=== PATIENT | female | born 1980 | race Caucasian/White ===

== ENCOUNTER 2017-02-17 11:13 | Inpatient (IN) | payer BC ==
[2017-02-17] MEDS ORDERED: METHYLERGONOVINE 0.2 MG/ML 1 ML AMP IM PRN (12:10)
[2017-02-17] MEDS ORDERED: CARBOPROST TROMETHAMINE 250 MCG/ML 1 ML AMP IM PRN (12:10)
[2017-02-17] MEDS ORDERED: LIDOCAINE 1% (PF) 10 MG/ML (30 ML SDV) SQ PRN (12:10)
[2017-02-17] MEDS ORDERED: OXYTOCIN 10 UNIT/ML 1 ML VIAL IM PRN (12:10)
[2017-02-17] MEDS ORDERED: TERBUTALINE 1 MG/ML VIAL SQ PRN (12:10)
[2017-02-17] MEDS ORDERED: OXYTOCIN 20 UNITS/1000 ML NS 1,000 ML IV SCH ×2 (12:15→14:30)
[2017-02-17] MEDS ORDERED: LACTATED RINGERS 1,000 ML IV SCH (12:15)
[2017-02-17 12:41] VITALS: BMI 27.1
[2017-02-17] MEDS ORDERED: BUTORPHANOL 1 MG/ML 1 ML VIAL IV PRN (12:41)
--- NOTE | 2017-02-17 12:46 | P.HPOB ---
History of Present Illness H&P Date: 02/17/17 Chief Complaint: 40-4/7 weeks, active labor The patient is a 36-year-old 4 para 1021 admitted at 40-4/7 weeks as established by last menstrual period and confirmed by 9 week ultrasound. She is admitted in early active labor with all signs reassuring. Her has been entirely uncomplicated. She does fall into the category of advanced maternal age and declined chromosomal screening. She is additionally Rh- and received RhoGAM at 28 weeks. During the , her initial ultrasound demonstrated a possible ventricular septal defect which was not noted on level II scan with maternal medicine. Group B strep status is negative. Obstetrical history: 4 para 1021 with 1 term vaginal delivery without complications. She had 2 early miscarriages not requiring D&C. Current statistics are listed in history of present illness. EDC of 2016 was established by last menstrual period and confirmed by 9 week ultrasound. Laboratory workup demonstrates a blood type of A- with a negative antibody screen. Rubella status is immune. Remainder of her laboratory workup was within normal limits. One hour Glucola was normal and group B strep status is negative. Gynecologic history: Unremarkable with no history of any infections to include STDs. Review of Systems Review of systems is confined to history of present illness. Past Medical History Past Medical History: No Reported History History of Any Multi-Drug Resistant Organisms: None Reported Past Surgical History: No Surgical Hx Reported Past Anesthesia/Blood Transfusion Reactions: No Reported Reaction Past Psychological History: No Psychological Hx Reported Smoking Status: Never smoker Past Alcohol Use History: None Reported Past Drug Use History: None Reported - Past Family History Father Family Medical History: No Reported History Medications and Allergies Home Medications Medication Instructions Recorded Confirmed Type Pnv No.95/Ferrous Fum/Folic AC 1 each PO 02/17/17 History [ Multivitamin Tablet] Allergies Allergy/AdvReac Type Severity Reaction Status Date / Time No Known Allergies Allergy Verified 02/17/17 11:26 Exam - Vital Signs Vital signs: Vital Signs Temp Pulse Resp BP 02/17/17 12:10 97.6 F 86 18 116/79 02/17/17 11:29 97.6 F 86 18 116/79 Intake and Output 02/16/17 02/17/17 02/17/17 22:59 06:59 14:59 Other: Weight 69.4 kg Patient Weight 02/18/17 06:59 Weight 69.4 kg In general, this is a well-developed, well-nourished white female in no acute distress. Her heart has a regular rhythm and rate without murmur. Her lungs are clear to auscultation bilaterally in all springer. Her abdomen is gravid, nondistended, has normal active bowel sounds, is soft, nontender, and without any palpable masses aside from uterine fundus. Her extremities are without any cyanosis, clubbing, or significant edema and are nontender to palpation bilaterally. Digital cervical examination demonstrates her cervix to be approximate 5 cm dilated, 80% effaced, the vertex in presentation at -2 station. Artificial rupture of membranes is carried out demonstrating clear fluid. Assessment and Plan (1) Active labor at term Current Visit: Yes Status: Acute Code(s): [id number] - SNOMED Code(s): 20038386 Plan: The patient is admitted for active management of labor. She will have close maternal and surveillance and expectant management will be practiced. She is a good candidate for either IV or epidural analgesia, whichever she may choose.
[2017-02-17 13:12] LABS: Basophils % (A) 0 %; CH 26.2; CHCM 31.6; Eosinophils % (A) 0 %; HCT 31.5 % (34.0-46.0); HDW 2.72; HGB 10.3 gm/dL (11.4-16.0); Hypochromasia Slight; Luc # (Auto) 0.16; Luc % (Auto) 1; Lymphocytes # (A) 1.8 k/uL (1.0-4.8); Lymphocytes % (A) 12 %; MCH 27.2 pg (25.0-35.0); MCHC 32.7 g/dL (31.0-37.0); MCV 83.4 fL (80.0-100.0); Mean Platelet Volume 9.7; Monocytes # (A) 0.8 k/uL (0-1.0); Monocytes % (A) 5 %; Neutrophils # (A) 12.5 k/uL (1.3-7.7); Neutrophils % (A) 81 %; RBC 3.78 m/uL (3.80-5.40); WBC 15.3 k/uL (3.8-10.6); WBC (Perox) 15.97
[2017-02-17] MEDS ORDERED: BENZOCAINE/MENTHOL SPRAY 1 GM/SPRAY AEROSOL TOPICAL PRN (14:22)
[2017-02-17] MEDS ORDERED: LANOLIN CREAM 5 GM TUBE TOPICAL PRN (14:22)
[2017-02-17] MEDS ORDERED: SIMETHICONE 80 MG CHEWABLE PO PRN (14:22)
[2017-02-17] MEDS ORDERED: WITCH HAZEL 1 EACH MED..PAD TOPICAL PRN (14:22)
[2017-02-17] MEDS ORDERED: diphenhydrAMINE 25 MG CAP PO PRN (14:22)
[2017-02-17] MEDS ORDERED: diphenhydrAMINE 50 MG/ML 1 ML VIAL IVP PRN ×2 (14:22)
[2017-02-17] MEDS ORDERED: diphenhydrAMINE 50 MG CAP PO PRN (14:22)
[2017-02-17] MEDS ORDERED: ZOLPIDEM 5 MG TAB PO PRN (14:22)
[2017-02-17] MEDS ORDERED: Acetaminophen-Codeine 300-30mg TAB PO PRN ×2 (14:22)
[2017-02-17] MEDS ORDERED: ACETAMINOPHEN TAB 325 MG TAB PO PRN (14:22)
[2017-02-17] MEDS ORDERED: HYDROCORTISONE 2.5% RECTAL CREAM 30 GM TUBE RECTAL PRN (14:22)
[2017-02-17] MEDS ORDERED: INFLUENZA VACCINE (6 MOS+) 60 MCG/0.5 ML SYRINGE IM ONE (14:24)
[2017-02-17] MEDS ORDERED: DIPH,PERTUS(ACELL)TETVAC-LF 0.5 ML VIAL IM ONE (14:24)
--- NOTE | 2017-02-17 14:28 | P.PROBDLV ---
Vaginal Delivery Note - . Vaginal Delivery Note: The patient is a 36-year-old 4 para 1021 admitted at 40-4/7 weeks by good dating parameters. She is admitted in early active labor with all signs reassuring. Her has been uncomplicated and group B strep status is negative. She is Rh- and received RhoGAM at 28 weeks. She additionally falls into the category of advanced maternal age and declined testing. On labor and delivery, she had artificial rupture of membranes carried out demonstrating clear fluid. She made quick progress through the active phase of labor to complete and +1 station. She pushed over the course of approximately 3 contractions to a normal spontaneous vaginal delivery of a viable 8 lbs. 3 oz. baby boy with Apgars of 9 at 1 minute and 9 at 5 minutes delivered in the right occiput anterior position. cord blood was collected for evaluation for the necessity of RhoGAM prior to discharge. The placenta was delivered spontaneously, intact, and grossly normal with a grossly normal three-vessel cord inserted approximately 4 cm from the margin of the placental disc. There was a very small second-degree midline laceration that appeared to be over the site of a previous laceration which was repaired over a 1% lidocaine block with 3-0 chromic catgut without difficulty. Estimated blood loss for the case was approximately 250 mL. There were no complications. All sponge, instrument, and needle counts were correct. Both mother and are resting comfortably in recovery.
[2017-02-17] MEDS: IBUPROFEN 600 MG TAB PO PRN ×2 (15:13→22:53)
[2017-02-17] MEDS: SENNOSIDES-DOCUSATE SODIUM 1 EACH TAB PO SCH (19:22)
[2017-02-17 20:37] VITALS: RESP 16
[2017-02-18] MEDS: IBUPROFEN 600 MG TAB PO PRN ×2 (06:01→15:21)
[2017-02-18] MEDS: SENNOSIDES-DOCUSATE SODIUM 1 EACH TAB PO SCH (08:38)
--- NOTE | 2017-02-18 11:23 | P.DS ---
Providers Date of admission: 02/17/17 11:50 Expected date of discharge: 02/18/17 Attending physician: Thomas Wakefield Primary care physician: Stated None - Discharge Diagnosis(es) (1) Active labor at term Current Visit: Yes Status: Acute (2) Normal vaginal delivery Current Visit: Yes Status: Acute Hospital Course: The patient is a 36-year-old 4 para 1021 admitted at 40-4/7 weeks by good dating parameters. She is admitted in active labor with all signs reassuring. Her has been entirely uncomplicated though she falls into the category of advanced maternal age and declined chromosomal screening. She is additionally Rh- and received RhoGAM at 28 weeks. On labor and delivery, she underwent artificial rupture of membranes and made fairly rapid progress through the active phase of labor to complete and then pushed to a normal spontaneous vaginal delivery of a viable 8 lbs. 3 oz. baby boy with Apgars of 9 at 1 minute and 9 at 5 minutes. Her course was unremarkable vital signs remaining stable and her temperature was afebrile throughout. She was deemed stable for discharge by day #1 was discharged home to follow-up in the office in 6 weeks' time routinely. Discharge instructions included calling for any significantly increased bleeding or foul-smelling lochia, significantly increased fever or abdominal pain, perineal complaints, breast complaints, or anything else that concerned her. She was additionally instructed to have nothing in the vagina for at least 6 weeks time to include intercourse. She understood her instructions and agrees to follow up as noted above. Discharge medications included continued vitamins as she has opted to breast-feed. She additionally was to use [id number] analgesic pain medications as needed. Maternal blood type is A - and cord blood was sent for evaluation for the necessity of RhoGAM prior to discharge. Rubella status is immune. Procedures: #1. Artificial rupture of membranes #2. Normal spontaneous vaginal delivery # 3. Repair of perineal laceration Patient Condition at Discharge: Good Plan - Discharge Summary Discharge Rx Participant: Yes New Discharge Prescriptions: No Action Pnv No.95/Ferrous Fum/Folic AC [ Multivitamin Tablet] 1 tab PO DAILY Discharge Medication List Pnv No.95/Ferrous Fum/Folic AC [ Multivitamin Tablet] 1 tab PO DAILY [History] Follow up Appointment(s)/Referral(s): Thomas Wakefield MD [STAFF PHYSICIAN] - 6 Weeks Discharge Disposition: HOME SELF-CARE
[2017-02-18 11:41] VITALS: BP 115/70; PULSE 72; TEMP 98.4
--- NOTE | 2017-02-19 13:40 | P.MSEPDOC ---
Presenting Problems - Arrival Data Date of Arrival on Unit: 02/17/17 Time of Arrival on Unit: 11:13 Mode of Transport: Ambulatory - Complaint OB-Reason for Admission/Chief Complaint: Other Comment: pt arrived c/o contractions Medical History - Information : 4 Para: 1 Term: 1 : 0 Abortions: Spontaneous or Elective: 2 Number of Living Children: 1 - Gestational Age Gestational Age by ORIN (wks/days): 40 Weeks and 4 Days Review of Systems - Review of Systems Constitutional: No problems Breast: No problems ENT: No problems Cardiovascular: No problems Respiratory: No problems Gastrointestinal: No problems Genitourinary: No problems Musculoskeletal: No problems Neurological: No problems Skin: No problems Vital Signs - Temperature Temperature: 98.4 F Temperature Source: Oral - Pulse Right Brachial Pulse Rate: 72 Pulse Assessment Method: Automatic Cuff - Respirations Respiratory Rate: 16 Oxygen Delivery Method: Room Air - Blood Pressure Right Arm Blood Pressure: 115/70 Blood Pressure Mean: 85 Blood Pressure Source: Automatic Cuff Medical Screen Scoring (Pre) - Cervical Exam Dilation: 1-3 cm = 1 Effacement: More than 50% = 2 Membranes: Intact - Uterine Contractions Frequency: > or = 36 weeks =2 Duration: > 40 seconds = 2 Intensity: N/A - Maternal Vital Signs Maternal Temperature: N/A Maternal Blood Pressure: N/A Signs of Preeclampsia: N/A Maternal Respirations: N/A - Pain Assessment Pain Location and Character: Abdomen Pain Scale Used: Numeric (1 - 10) Pain Intensity: 3 Pain Management Goal: 1 Pain Description: Cramping Pain Radiation Location: n/a Pain Frequency: Occasional Pain Duration: 4 Pain Duration Units: Minutes Pain Behavior: Vocalization Pain Aggravating Factors: Contractions Non-Pharmacological Interventions: Relaxation Technique - Maternal Trauma Maternal Trauma: N/A - Assessment Baseline FHR: 150 Heart Rate - NICHD Category: Category I (Normal) = 0 NST: Reactive Position: N/A Station: N/A - Total Score Total Score (Pre): 7 - Level of Risk Level of Risk: Medium (6-9) Physician Notification (Pre) - Physician Notified Physician Notified Date: 02/17/17 Physician Notified Time: 11:40 Spoke With: dr blount New Order Received: Yes - Notification Comment Comment: admit pt for labor Disposition - Disposition OB Disposition: Admit, LDRP Suite Transferred to:: st 10 Discharge Date: 02/17/17 Discharge Time: 11:57 I agree with the RN Medical Screening Exam: Yes Risk & Benefit of care provided described in d/c instruction: Yes Diagnosis: ENCOUNTER FOR FULL-TERM UNCOMPLICATED DELIVERY
== END 2017-02-18 15:59 | disposition home or self-care (01) | DRG 775 ==
LOC: FBPOP 11:13 → 4FBP 11:50
PROVIDERS: ADMIT Obstetrics & Gynecology; ATTEND Obstetrics & Gynecology
PROC: 10E0XZZ Delivery of Products of Conception, External Approach (ICD-10-PCS; principal; 2017-02-17)
PROC: 0KQM0ZZ Repair Perineum Muscle, Open Approach (ICD-10-PCS; 2017-02-17)
PROC: 3E0234Z Introduction of Serum, Toxoid and Vaccine into Muscle, Percutaneous Approach (ICD-10-PCS; 2017-02-17)
DX: O70.1 Second degree perineal laceration during delivery (principal); Z37.0 Single live birth; Z23 Encounter for immunization; Z3A.40 40 weeks gestation of pregnancy; Z79.899 Other long term (current) drug therapy
CPT/HCPCS: 59025; 85025; 88307; 90686; 90715; 99213

== ENCOUNTER → 2020-06-20 | Outpatient (CLI) | payer BC ==
--- NOTE | 2020-06-23 13:56 | MM ---
Reason for exam: screening (asymptomatic). Baseline mammogram. History: Taking hormonal contraceptives beginning at age 17. Physical Findings: Nurse did not find any significant physical abnormalities on exam. MG 3D Screening Mammo W/Cad Bilateral CC and MLO view(s) were taken. The breast tissue is extremely dense which could obscure a lesion on mammography. These results were verbally communicated with the patient and result sheet given to the patient on 06/20/20. ASSESSMENT: Negative, BI-RAD 1 RECOMMENDATION: Routine screening mammogram of both breasts at age 41.
== END | disposition home or self-care (01) ==
LOC: RADMAMWWP 11:03
PROVIDERS: ATTEND Obstetrics & Gynecology
DX: Z12.31 Encounter for screening mammogram for malignant neoplasm of breast (principal)
CPT/HCPCS: 77063; 77067

== ENCOUNTER → 2022-01-20 | Outpatient (CLI) | payer BC ==
--- NOTE | 2022-01-21 08:34 | MM ---
Reason for Exam: Screening (asymptomatic). Last mammogram was performed 1 year(s) and 7 month(s) ago. Patient History: Menarche at age 14. First Full-Term at age 29. Patient has history of breast feeding. Currently using Hormonal Contraceptives, starting at age 17. Risk Values: Nelly 5 year model risk: 0.6%. NCI Lifetime model risk: 11.1%. Prior Study Comparison: 06/20/2020 Bilateral Screening Mammogram, [facility]. Tissue Density: The breast tissue is extremely dense which could obscure a lesion on mammography. Findings: Analyzed By CAD. There is no suspicious group of microcalcifications or new suspicious mass in either breast. No significant change from prior examination. Overall Assessment: Negative, BI-RAD 1 Management: Screening Mammogram of both breasts in 1 year. A clinical breast exam by your physician is recommended on an annual basis and results should be correlated with mammographic findings. Electronically signed and approved by: Francisco Maher D.O.
--- NOTE | 2022-01-21 08:34 | MM ---
Reason for Exam: Screening (asymptomatic). Last mammogram was performed 1 year(s) and 7 month(s) ago. Patient History: Menarche at age 14. First Full-Term at age 29. Patient has history of breast feeding. Currently using Hormonal Contraceptives, starting at age 17. Risk Values: Nelly 5 year model risk: 0.6%. NCI Lifetime model risk: 11.1%. Prior Study Comparison: 06/20/2020 Bilateral Screening Mammogram, [facility]. Tissue Density: The breast tissue is extremely dense which could obscure a lesion on mammography. Findings: Analyzed By CAD. There is no suspicious group of microcalcifications or new suspicious mass in either breast. No significant change from prior examination. Overall Assessment: Negative, BI-RAD 1 Management: Screening Mammogram of both breasts in 1 year. A clinical breast exam by your physician is recommended on an annual basis and results should be correlated with mammographic findings. Electronically signed and approved by: Francisco Maher D.O.
== END | disposition home or self-care (01) ==
LOC: RADMAMWWP 13:50
PROVIDERS: ATTEND Family Medicine
DX: Z12.31 Encounter for screening mammogram for malignant neoplasm of breast (principal)
CPT/HCPCS: 77063; 77067

== ENCOUNTER → 2023-03-31 | Outpatient (CLI) | payer BC ==
--- NOTE | 2023-04-01 13:24 | MM ---
Reason for Exam: Screening (asymptomatic). Last mammogram was performed 1 year(s) and 2 month(s) ago. Patient History: Menarche at age 14. First Full-Term at age 29. Premenopausal. Patient has history of breast feeding. Currently using Hormonal Contraceptives, starting at age 17. Risk Values: Nelly 5 year model risk: 0.7%. NCI Lifetime model risk: 11.0%. Prior Study Comparison: 06/20/2020 Bilateral Screening Mammogram, [facility]. 01/20/2022 Bilateral MG 3D screening mammo w/cad, [facility]. Tissue Density: The breast tissue is heterogeneously dense. This may lower the sensitivity of mammography. Findings: Analyzed By CAD. There is no suspicious group of microcalcifications or new suspicious mass. Overall Assessment: Negative, BI-RAD 1 Management: Screening Mammogram of both breasts in [address] [facility] will attempt to contact patient to return for supplemental views and ultrasound if indicated. Patient should continue monthly self-breast exams. A clinical breast exam by your physician is recommended on an annual basis. This exam should not preclude additional follow-up of suspicious palpable abnormalities. Note on Nelly scores and lifetime risk: 1. A Nelly score greater than 3% is considered moderate risk. If this is the case, consider specialist referral to assess eligibility for a risk reducing agent. 2. If overall lifetime risk for the development of breast cancer is 20% or higher, the patient may qualify for future screening with alternating mammogram and breast MRI. Electronically signed and approved by: Mg Yoon DO
== END | disposition home or self-care (01) ==
LOC: RADMAMWWP 09:16
PROVIDERS: ATTEND Obstetrics & Gynecology
DX: Z12.31 Encounter for screening mammogram for malignant neoplasm of breast (principal)
CPT/HCPCS: 77063; 77067

== ENCOUNTER → 2024-08-17 | Outpatient (CLI) | payer BC ==
--- NOTE | 2024-08-17 10:10 | XR ---
EXAMINATION TYPE: XR foot complete LT DATE OF EXAM: 08/17/2024 9:31 AM COMPARISON: None CLINICAL INDICATION: Female, 43 years old with history of M79.675 Pain L toes; PHH, pain TECHNIQUE: XR foot complete LT examined in the AP, oblique, and lateral projections. FINDINGS: There is an acute oblique fracture through the third digit proximal phalanx without significant displ acement. No additional fractures. No intra-articular extension visualized. IMPRESSION: Acute oblique fracture through the third digit proximal phalanx with minimal displacement. [facility], , 08/17/2024 10:08 AM
== END | disposition home or self-care (01) ==
LOC: RADXRMAIN 09:13
PROVIDERS: ATTEND Family Medicine
DX: S62.617A Displaced fracture of proximal phalanx of left little finger, initial encounter for closed fracture (principal)